=== PATIENT | female | born 1950 | race Asian ===

== ENCOUNTER 2023-02-26 04:32 | Day surgery (SDC) | payer OTHER ==
[2023-02-25 12:00] VITALS: BMI 25.9
[2023-02-26 09:14] VITALS: TEMP 97.8
[2023-02-26 09:43] VITALS: BP 141/44; PULSE 60; RESP 17
== END 2023-02-26 09:58 | disposition home or self-care (01) ==
LOC: JASU-ENDO 04:32
PROVIDERS: ATTEND Internal Medicine Gastroenterology
PROC: 0DJD8ZZ Inspection of Lower Intestinal Tract, Via Natural or Artificial Opening Endoscopic (ICD-10-PCS; principal; 2023-02-26 09:00)
DX: Z12.11 Encounter for screening for malignant neoplasm of colon (principal); I10 Essential (primary) hypertension; E11.9 Type 2 diabetes mellitus without complications; Z79.84 Long term (current) use of oral hypoglycemic drugs
CPT/HCPCS: 82962